=== PATIENT | male | born 1945 | race Caucasian/White ===

== ENCOUNTER 2021-01-08 00:34 | Inpatient (IN) ==
[2021-01-08] MEDS ORDERED: fentaNYL 100 MCG/2 ML VIAL ONE (01:11)
[2021-01-08] MEDS ORDERED: MIDAZOLAM 2 MG/2 ML VIAL ONE (01:11)
[2021-01-08] MEDS ORDERED: HEPARIN 5,000 UNIT/1 ML VIAL ONE (01:30)
[2021-01-08] MEDS ORDERED: NITROGLYCERIN DRIP 50 MG/250 ML BOTTLE IV ONE (01:45)
[2021-01-08] MEDS ORDERED: NITROPRUSSIDE 50 MG/2 ML VIAL ONE (02:15)
[2021-01-08] MEDS ORDERED: ATROPINE 1 MG/10 ML SYRINGE ONE (02:27)
[2021-01-08] MEDS ORDERED: NITROGLYCERIN SL 0.4 MG TABLET SL PRN (03:02)
[2021-01-08] MEDS ORDERED: DEXTROSE 50% 25 GM/50 ML VIAL IV PRN ×2 (03:04)
[2021-01-08] MEDS ORDERED: GLUCAGON 1 MG VIAL IM PRN ×2 (03:04)
[2021-01-08 03:14] LABS: Basophils % 0.5 % (0.0-0.8); Eosinophils # 0.2 10*3/uL (0.0-0.87); Eosinophils % 2.8 % (0.00-10.9); Hemoglobin 10.7 GM/DL (14.0-18.0); Immature Granulocytes % 0.5 %; Immature Granulocytes Absolute 0.03 #; Lymphocytes # 1.4 10*3/uL (1.4-4.0); Lymphocytes % 24.9 % (21.2-54.2); Mean Corpuscular HGB Conc 32.4 GM/DL (32-36); Mean Corpuscular Volume 97.6 FL (87-102); Mean Platelet Volume 9.5 FL (9.6-12.0); Monocytes % 7.8 % (1.7-12.7); Neutrophils % 63.5 % (38.7-73.9); Platelet Count 89 T/CUMM (130-400); Red Blood Count 3.38 MC/CUMM (3.8-5.5); Red Cell Distribution Width 13.9 % (9.3-17.3); White Blood Count 5.8 T/CUMM (4-12)
[2021-01-08 03:23] LABS: INR 1.2; PT Patient Result 13.2 SECS (10.5-12.0)
[2021-01-08] MEDS ORDERED: SODIUM CHLORIDE 0.9% 1,000 ML IV SCH (03:30)
[2021-01-08 03:39] LABS: Albumin 3.2 G/DL (3.4-5.0); Bilirubin,Total 0.5 MG/DL (0.20-1.00); Calcium 8.3 MG/DL (8.5-10.1); Potassium 3.8 MMOL/L (3.5-5.1); Total Protein 7.2 G/DL (6.4-8.2)
[2021-01-08] MEDS: INSULIN REGULAR 100 UNIT/ML SUBCUT SCH ×4 (07:33→20:26)
[2021-01-08] MEDS: CLOPIDOGREL 75 MG TABLET PO SCH (09:00)
[2021-01-08] MEDS: LEVOTHYROXINE 25 MCG TABLET PO SCH (09:00)
[2021-01-08] MEDS: FUROSEMIDE 40 MG TABLET PO SCH (09:00)
[2021-01-08] MEDS: ASPIRIN EC 81 MG TABLET PO SCH (09:00)
[2021-01-08 09:55] LABS: Risk Ratio 2.49; VLDL Cholesterol 11.8 MG/DL
[2021-01-08] MEDS: ATORVASTATIN 40 MG TABLET PO SCH (20:26)
[2021-01-08] MEDS: ZALEPLON 5 MG CAPSULE PO PRN (20:27)
[2021-01-09] MEDS: ZALEPLON 5 MG CAPSULE PO PRN (02:05)
[2021-01-09] MEDS: ONDANSETRON 4 MG/2 ML VIAL IV PRN ×3 (03:28→07:50)
[2021-01-09 05:23] LABS: Basophils % 0.3 % (0.0-0.8); Eosinophils % 0.3 % (0.00-10.9); Hematocrit 34.5 VOL% (42.0-52.0); Hemoglobin 11.5 GM/DL (14.0-18.0); Immature Granulocytes % 0.6 %; Immature Granulocytes Absolute 0.04 #; Lymphocytes # 0.8 10*3/uL (1.4-4.0); Lymphocytes % 11.6 % (21.2-54.2); Mean Corpuscular HGB Conc 33.3 GM/DL (32-36); Mean Corpuscular Volume 95.8 FL (87-102); Mean Platelet Volume 9.5 FL (9.6-12.0); Monocytes % 7.9 % (1.7-12.7); Neutrophils % 79.3 % (38.7-73.9); Red Cell Distribution Width 14.3 % (9.3-17.3); White Blood Count 6.5 T/CUMM (4-12)
[2021-01-09 05:42] LABS: Platelet Count 71 T/CUMM (130-400)
[2021-01-09 05:45] LABS: Osmolality,Calculated 287.3 MOS/KG (273-304); Potassium 4.1 MMOL/L (3.5-5.1)
[2021-01-09 05:46] LABS: Hypochromasia 1+; Microcytosis 1+; Platelet Estimate Decreased
[2021-01-09 05:47] LABS: High Sensitive Troponin I* 25536.1 ng/L (0-78)
[2021-01-09] MEDS: PROMETHAZINE 25 MG/1 ML VIAL IM PRN ×2 (05:59→08:10)
[2021-01-09] MEDS: LEVOTHYROXINE 25 MCG TABLET PO SCH (06:28)
[2021-01-09] MEDS ORDERED: HEPARIN DRIP 25,000 UNITS/500 ML PREMIX IV SCH (08:00)
[2021-01-09] MEDS: INSULIN REGULAR 100 UNIT/ML SUBCUT SCH ×4 (08:18→21:23)
[2021-01-09] MEDS ORDERED: ONDANSETRON 4 MG/2 ML VIAL IV PRN (08:20)
[2021-01-09] MEDS: NITROGLYCERIN DRIP 50 MG/250 ML BOTTLE IV SCH (08:37)
[2021-01-09] MEDS ORDERED: APIXABAN 2.5 MG TABLET PO SCH (09:00)
[2021-01-09] MEDS ORDERED: SODIUM CHLORIDE 0.45% 500 ML IV ONE (09:34)
[2021-01-09] MEDS: BACLOFEN 10 MG TABLET PO SCH (09:49)
[2021-01-09] MEDS: GABAPENTIN 100 MG CAPSULE PO SCH (09:49)
[2021-01-09] MEDS: FLUTICASONE 50 MCG NASAL SPRAY 16 GM BOTTLE BOTH NARES SCH (09:49)
[2021-01-09] MEDS: FUROSEMIDE 40 MG TABLET PO SCH (09:49)
[2021-01-09] MEDS: ASPIRIN EC 81 MG TABLET PO SCH (09:49)
[2021-01-09] MEDS: FLUoxetine 20 MG CAPSULE PO SCH ×2 (09:50→13:43)
[2021-01-09] MEDS: BUDESONIDE/FORMOTEROL 160-4.5 INHALER 6 GM INH SCH (09:50)
[2021-01-09] MEDS: CLOPIDOGREL 75 MG TABLET PO SCH ×2 (09:50→11:36)
[2021-01-09] MEDS: METOCLOPRAMIDE 10 MG/2 ML VIAL IV SCH ×3 (09:53→21:52)
[2021-01-09] MEDS ORDERED: ASPIRIN 300 MG SUPP RECTAL ONE (10:09)
[2021-01-09] MEDS ORDERED: FUROSEMIDE 40 MG/4 ML VIAL IV ONE (10:11)
[2021-01-09] MEDS ORDERED: METOCLOPRAMIDE 10 MG/2 ML VIAL IV SCH (12:00)
[2021-01-09 12:17] LABS: Bilirubin,Urine Negative (Negative); Blood, Urine Large mg/dL (Negative); Glucose,Urine (UA) Negative (Negative); Hyaline Casts,Urine 6 /LPF (0-3); Ketones,Urine Negative (Negative); Mucus,Urine Occasional /LPF (Occasional); Nitrite,Urine Negative (Negative); Protein,Urine 30 MG/DL; RBC,Urine 594 /HPF (0-4); Squamous Epithelial Cell,Urine Occasional /HPF (0-10); Urine Appearance CLOUDY (Clear); Urine Color Yellow (Yellow); Urine Specific Gravity 1.011 (1.001-1.035); Urine Urobilinogen < 2.0 EU/DL (0.2-1.0)
[2021-01-09] MEDS ORDERED: ASPIRIN CHEW 81 MG TABLET PO ONE ×2 (12:25→12:27)
[2021-01-09 12:39] LABS: Basophils % 0.3 % (0.0-0.8); Hematocrit 36.7 VOL% (42.0-52.0); Hemoglobin 11.7 GM/DL (14.0-18.0); Immature Granulocytes % 0.6 %; Immature Granulocytes Absolute 0.05 #; Lymphocytes # 0.5 10*3/uL (1.4-4.0); Lymphocytes % 6.8 % (21.2-54.2); Mean Corpuscular HGB Conc 31.9 GM/DL (32-36); Mean Corpuscular Volume 98.9 FL (87-102); Mean Platelet Volume 9.3 FL (9.6-12.0); Monocytes % 5.4 % (1.7-12.7); Neutrophils % 86.9 % (38.7-73.9); Platelet Count 83 T/CUMM (130-400); Red Blood Count 3.71 MC/CUMM (3.8-5.5); Red Cell Distribution Width 14.4 % (9.3-17.3)
[2021-01-09] MEDS: cefTRIAXone 1,000 MG in SODIUM CHLORIDE 0.9% 100 ML IV SCH (12:41)
[2021-01-09 13:01] LABS: Calcium 9.4 MG/DL (8.5-10.1); Osmolality,Calculated 288.5 MOS/KG (273-304); Potassium 4.6 MMOL/L (3.5-5.1)
[2021-01-09] MEDS: TEMAZEPAM 15 MG CAPSULE PO PRN (21:48)
[2021-01-09] MEDS: TAMSULOSIN 0.4 MG CAPSULE PO SCH (21:48)
[2021-01-09] MEDS: PRIMIDONE 50 MG TABLET PO SCH (21:49)
[2021-01-09] MEDS: ATORVASTATIN 40 MG TABLET PO SCH (21:49)
[2021-01-10] MEDS: METOCLOPRAMIDE 10 MG/2 ML VIAL IV SCH ×4 (04:15→22:33)
[2021-01-10 04:36] LABS: Basophils % 0.1 % (0.0-0.8); Eosinophils % 0.1 % (0.00-10.9); Hematocrit 35.5 VOL% (42.0-52.0); Hemoglobin 11.6 GM/DL (14.0-18.0); Immature Granulocytes % 0.6 %; Immature Granulocytes Absolute 0.05 #; Lymphocytes # 0.9 10*3/uL (1.4-4.0); Lymphocytes % 10.2 % (21.2-54.2); Mean Corpuscular HGB Conc 32.7 GM/DL (32-36); Mean Corpuscular Volume 98.1 FL (87-102); Mean Platelet Volume 9.7 FL (9.6-12.0); Monocytes % 8.9 % (1.7-12.7); Neutrophils % 80.1 % (38.7-73.9); Platelet Count 90 T/CUMM (130-400); Red Blood Count 3.62 MC/CUMM (3.8-5.5); Red Cell Distribution Width 14.1 % (9.3-17.3); White Blood Count 8.9 T/CUMM (4-12)
[2021-01-10 04:54] LABS: Hypochromasia 1+; Microcytosis 1+; Platelet Estimate Decreased
[2021-01-10 04:55] LABS: Calcium 8.9 MG/DL (8.5-10.1); Osmolality,Calculated 294.1 MOS/KG (273-304); Potassium 4.1 MMOL/L (3.5-5.1)
[2021-01-10] MEDS: LEVOTHYROXINE 25 MCG TABLET PO SCH (05:49)
[2021-01-10] MEDS: INSULIN REGULAR 100 UNIT/ML SUBCUT SCH ×4 (06:53→21:05)
[2021-01-10] MEDS: NITROGLYCERIN DRIP 50 MG/250 ML BOTTLE IV SCH (08:30)
[2021-01-10] MEDS: FLUTICASONE 50 MCG NASAL SPRAY 16 GM BOTTLE BOTH NARES SCH (08:39)
[2021-01-10] MEDS: ASPIRIN EC 81 MG TABLET PO SCH (08:39)
[2021-01-10] MEDS: GABAPENTIN 100 MG CAPSULE PO SCH (08:39)
[2021-01-10] MEDS: BACLOFEN 10 MG TABLET PO SCH (08:39)
[2021-01-10] MEDS: FUROSEMIDE 40 MG TABLET PO SCH (08:39)
[2021-01-10] MEDS: BUDESONIDE/FORMOTEROL 160-4.5 INHALER 6 GM INH SCH (08:39)
[2021-01-10] MEDS: FLUoxetine 20 MG CAPSULE PO SCH (08:39)
[2021-01-10] MEDS: CLOPIDOGREL 75 MG TABLET PO SCH (08:39)
[2021-01-10] MEDS ORDERED: RANOLAZINE 500 MG TABLET PO SCH (09:00)
[2021-01-10] MEDS: cefTRIAXone 1,000 MG in SODIUM CHLORIDE 0.9% 100 ML IV SCH (12:20)
[2021-01-10] MEDS ORDERED: FUROSEMIDE 40 MG/4 ML VIAL IV ONE (12:35)
[2021-01-10] MEDS: METOPROLOL TARTRATE 25 MG TABLET PO SCH ×2 (12:52→22:22)
[2021-01-10] MEDS: ISOSORBIDE MONONITRATE 30 MG TABLET PO SCH (13:48)
[2021-01-10] MEDS ORDERED: SPIRONOLACTONE 25 MG TABLET PO SCH (14:05)
[2021-01-10] MEDS ORDERED: hydrALAZINE 25 MG TABLET PO SCH (21:00)
[2021-01-10] MEDS: TAMSULOSIN 0.4 MG CAPSULE PO SCH (22:22)
[2021-01-10] MEDS: ASCORBIC ACID 500 MG TABLET PO SCH (22:22)
[2021-01-10] MEDS: APIXABAN 5 MG TABLET PO SCH (22:22)
[2021-01-10] MEDS: TEMAZEPAM 15 MG CAPSULE PO PRN (22:23)
[2021-01-10] MEDS: ATORVASTATIN 40 MG TABLET PO SCH (22:23)
[2021-01-10] MEDS: PRIMIDONE 50 MG TABLET PO SCH (22:25)
[2021-01-11 02:14] LABS: Basophils % 0.3 % (0.0-0.8); Eosinophils # 0.1 10*3/uL (0.0-0.87); Eosinophils % 0.8 % (0.00-10.9); Hematocrit 37.2 VOL% (42.0-52.0); Hemoglobin 11.6 GM/DL (14.0-18.0); Immature Granulocytes % 0.6 %; Immature Granulocytes Absolute 0.05 #; Lymphocytes # 1.4 10*3/uL (1.4-4.0); Lymphocytes % 15.9 % (21.2-54.2); Mean Corpuscular HGB Conc 31.2 GM/DL (32-36); Mean Corpuscular Volume 99.7 FL (87-102); Mean Platelet Volume 9.5 FL (9.6-12.0); Monocytes % 8.9 % (1.7-12.7); Neutrophils % 73.5 % (38.7-73.9); Platelet Count 73 T/CUMM (130-400); Red Blood Count 3.73 MC/CUMM (3.8-5.5)
[2021-01-11 02:30] LABS: Calcium 9.1 MG/DL (8.5-10.1); Osmolality,Calculated 294.3 MOS/KG (273-304); Potassium 4.4 MMOL/L (3.5-5.1)
[2021-01-11 03:54] LABS: Ovalocytes 2+; Platelet Estimate Decreased
[2021-01-11] MEDS: METOCLOPRAMIDE 10 MG/2 ML VIAL IV SCH ×2 (05:42→09:45)
[2021-01-11] MEDS: LEVOTHYROXINE 25 MCG TABLET PO SCH (05:42)
[2021-01-11] MEDS: INSULIN REGULAR 100 UNIT/ML SUBCUT SCH ×2 (07:40→11:45)
[2021-01-11] MEDS: ASCORBIC ACID 500 MG TABLET PO SCH (09:45)
[2021-01-11] MEDS: BACLOFEN 10 MG TABLET PO SCH (09:45)
[2021-01-11] MEDS: FLUTICASONE 50 MCG NASAL SPRAY 16 GM BOTTLE BOTH NARES SCH (09:45)
[2021-01-11] MEDS: BUDESONIDE/FORMOTEROL 160-4.5 INHALER 6 GM INH SCH (09:45)
[2021-01-11] MEDS: CLOPIDOGREL 75 MG TABLET PO SCH (09:45)
[2021-01-11] MEDS: FUROSEMIDE 40 MG TABLET PO SCH (09:45)
[2021-01-11] MEDS: APIXABAN 5 MG TABLET PO SCH (09:45)
[2021-01-11] MEDS: ISOSORBIDE MONONITRATE 30 MG TABLET PO SCH (09:45)
[2021-01-11] MEDS: METOPROLOL TARTRATE 25 MG TABLET PO SCH (09:45)
[2021-01-11] MEDS: FLUoxetine 20 MG CAPSULE PO SCH (09:45)
[2021-01-11] MEDS: GABAPENTIN 100 MG CAPSULE PO SCH (09:45)
[2021-01-11] MEDS: ASPIRIN EC 81 MG TABLET PO SCH (09:45)
[2021-01-11 15:22] VITALS: BP 130/65
== END 2021-01-11 15:10 | disposition home or self-care (01) | DRG 246 ==
LOC: N.CC 00:34 → N.ICU 02:52
PROVIDERS: ADMIT Internal Medicine Cardiovascular Disease; ATTEND Internal Medicine Cardiovascular Disease
PROC: CLCCHCL (ICD-10-PCS; 2021-01-08 01:45)